=== PATIENT | female | born 1985 | race Two or more races ===

== ENCOUNTER 2024-05-24 07:57 | Emergency (ER) | payer MEDICAID ==
[~2024-05-24] VITALS: Ht 161.3 cm; Wt 93.0 kg
[2024-05-24 08:01] VITALS: O2SAT 100
[2024-05-24] MEDS: KETOROLAC 30MG/ML VIAL IM ONE (08:48)
[2024-05-24] MEDS: METHOCARBAMOL 500MG TABLET PO ONE (10:46)
[2024-05-24] MEDS ORDERED: METH-653 MT (10:48)
[2024-05-24] MEDS ORDERED: IBUP-2029 MT (10:48)
[2024-05-24 11:01] VITALS: BP 131/83; PULSE 65; RESP 17; TEMP 36.66960; O2SAT 100
== END 2024-05-24 11:04 | disposition home or self-care (01) ==
LOC: ER 07:57
DX: S76.012A Strain of muscle, fascia and tendon of left hip, initial encounter (principal); X58.XXXA Exposure to other specified factors, initial encounter; Y93.01 Activity, walking, marching and hiking; Y92.89 Other specified places as the place of occurrence of the external cause; Y99.8 Other external cause status
CPT/HCPCS: 81025; 73502; 96372; 99283; J1885; Z7610